=== PATIENT | female | born 1960 | race Caucasian/White ===

== ENCOUNTER 2024-06-04 07:51 | Inpatient (IN) ==
--- NOTE | 2024-05-11 10:55 | PAT Medication Instructions ---
Medication Instructions Date of Service May 11, 2024 Home Medications amlodipine 10 mg tablet 5 mg PO HS aspirin 81 mg capsule 81 mg PO QAM atorvastatin 20 mg tablet 20 mg PO HS betamethasone dipropionate 0.05 % topical cream 1 applic topical BID PRN psoriasis cholecalciferol (vitamin D3) 125 mcg (5,000 unit) tablet (Vitamin D3) 125 mcg PO QAM diclofenac sodium 1 % topical gel (Voltaren Arthritis Pain) 2 g topical QID PRN Pain duloxetine 60 mg capsule,delayed release 60 mg PO QAM gabapentin 300 mg capsule 1,200 mg PO HS hydrochlorothiazide 12.5 mg tablet 12.5 mg PO QAM hydrocodone 5 mg-acetaminophen 325 mg tablet 1 tab PO Q4H PRN Pain melatonin 5 mg tablet 15 - 20 mg PO HS PRN Sleep metformin 500 mg tablet 1,000 mg PO QAM metoprolol succinate 100 mg tablet,extended release 24 hr 100 mg PO QAM metoprolol succinate 50 mg tablet,extended release 24 hr 50 mg PO QAM omeprazole 20 mg tablet,delayed release 20 mg PO QAM ASK your prescriber and surgeon aspirin 81 mg capsule 81 mg PO QAM STOP taking 24 hours before surgery diclofenac sodium 1 % topical gel (Voltaren Arthritis Pain) 2 g topical QID PRN Pain betamethasone dipropionate 0.05 % topical cream 1 applic topical BID PRN psoriasis DO NOT take the morning of surgery cholecalciferol (vitamin D3) 125 mcg (5,000 unit) tablet (Vitamin D3) 125 mcg PO QAM hydrochlorothiazide 12.5 mg tablet 12.5 mg PO QAM metformin 500 mg tablet 1,000 mg PO QAM Take morning of surgery With a small sip of water, OTHERWISE NOTHING TO EAT OR DRINK AFTER MIDNIGHT: duloxetine 60 mg capsule,delayed release 60 mg PO QAM hydrocodone 5 mg-acetaminophen 325 mg tablet 1 tab PO Q4H PRN Pain (if needed) metoprolol succinate 100 mg tablet,extended release 24 hr 100 mg PO QAM metoprolol succinate 50 mg tablet,extended release 24 hr 50 mg PO QAM omeprazole 20 mg tablet,delayed release 20 mg PO QAM Take evening before surgery amlodipine 10 mg tablet 5 mg PO HS atorvastatin 20 mg tablet 20 mg PO HS gabapentin 300 mg capsule 1,200 mg PO HS hydrocodone 5 mg-acetaminophen 325 mg tablet 1 tab PO Q4H PRN Pain (if needed) melatonin 5 mg tablet 15 - 20 mg PO HS PRN Sleep (if needed) Other Notes If you have any questions please call us at [phone] or [phone] or [phone] or [phone]
--- NOTE | 2024-05-14 12:21 | Anesthesiology Consultation ---
Date of Service May 14, 2024 Assessment & Plan (1) Encounter for pre-operative examination: - Check BSG DOS - Infectious disease screening: Per assessment on 05/14/24- No known recent infectious disease contacts. URI/bronchitis onset 04/26/24 resolved except mild, residual cough. DOS 06/04/24. Patient advised to contact surgeon/PAT if symptoms worsening/not at baseline prior to surgery. - Patient acceptable risk for surgery pending surgeon-ordered PCP preop evaluation (Dr. Palma/Debi, appt 05/25). Chart Review Chart Review: Patient seen in Pre Admission Testing Teaching & Discussion Pre-Anesthesia Teaching/Discussion Notes: Instructed NPO after midnight before surgery,except medications with 15 cc of water. Medication instructions provided according to the PAT guidelines. History Surgery Operation Date: 06/04/24 09:35 Proposed Procedures p L4-L5,L5-S1 Decompression and Fusion with Spinal Cord Monitoring - Papo Champagne, DO Height/Weight Height: 5 ft 4 in Weight: 91.4 kg Allergies Allergy/AdvReac Type Severity Reaction Status Date / Time lisinopril Allergy lip Verified 04/29/24 13:47 swelling Medications Home Medications Medication Instructions Recorded Confirmed Last Taken amlodipine 10 mg tablet 5 mg PO HS 04/29/24 04/29/24 Unknown aspirin 81 mg capsule 81 mg PO QAM 04/29/24 04/29/24 Unknown atorvastatin 20 mg tablet 20 mg PO HS 04/29/24 04/29/24 Unknown betamethasone dipropionate 0.05 % 1 applic topical BID PRN psoriasis 04/29/24 04/29/24 Unknown topical cream cholecalciferol (vitamin D3) 125 125 mcg PO QAM 04/29/24 04/29/24 Unknown mcg (5,000 unit) tablet (Vitamin D3) diclofenac sodium 1 % topical gel 2 g topical QID PRN Pain 04/29/24 04/29/24 Unknown (Voltaren Arthritis Pain) duloxetine 60 mg capsule,delayed 60 mg PO QAM 04/29/24 04/29/24 Unknown release gabapentin 300 mg capsule 1,200 mg PO HS 04/29/24 04/29/24 Unknown hydrochlorothiazide 12.5 mg tablet 12.5 mg PO QAM 04/29/24 04/29/24 Unknown hydrocodone 5 mg-acetaminophen 325 1 tab PO Q4H PRN Pain 04/29/24 04/29/24 Unknown mg tablet melatonin 5 mg tablet 15 - 20 mg PO HS PRN Sleep 04/29/24 04/29/24 Unknown metformin 500 mg tablet 1,000 mg PO QAM 04/29/24 04/29/24 Unknown metoprolol succinate 100 mg 100 mg PO QAM 04/29/24 04/29/24 Unknown tablet,extended release 24 hr metoprolol succinate 50 mg 50 mg PO QAM 04/29/24 04/29/24 Unknown tablet,extended release 24 hr omeprazole 20 mg tablet,delayed 20 mg PO QAM 04/29/24 04/29/24 Unknown release Past Medical History Medical History Back pain Fibromyalgia GERD (gastroesophageal reflux disease) Hx of migraines Hyperlipidemia Hypertension Prediabetes Oral med Psoriasis Sleep apnea CPAP Exercise / Class Metabolic Activity II 4-5 Yardwork/Stairs/Walk up hill (one FS: No CP, no SOB) Past Surgical History Surgical History History of bilateral tubal ligation History of esophagogastroduodenoscopy (EGD) Hx laparoscopic cholecystectomy Hx of abdominal surgery removal of foreign body Hx of appendectomy Hx of bilateral cataract extraction Hx of bladder repair surgery bladder tacking Hx of cervical spine surgery C3-C6 (2005) "minimal ROM restrictions" Hx of colonoscopy ~ Hx of foot surgery bilateral plantar fascitis sx w/ removal bone spurs Hx of tonsillectomy Nausea and vomiting after administration of anesthetic agent Past Anesthesia History No Hx of Anesthesia Complications and No Family Hx of Anesthesia Complications History of PONV No Hx of Motion Sickness and History of PONV Social History Smoking Status: Never smoker Do You Dip or Chew Tobacco: No Hx Alcohol Use: Yes alcohol intake frequency: holidays/special occasions only Hx Substance Use: No substance use type: does not use Review of Systems Patient denies chest pain, shortness of breath, dyspnea on exertion, fever, chills, cough, wheezing, palpitations. Physical Exam Vital Signs BP 117/73 P 65 TEMP 98.1 SP02 95%RA RESP 18 Physical Full cervical extension range of motion. Full TMJ range of motion. TMD 3 finger breaths Mallampati Score III Dentition: missing molars, planned upcoming 06/01 crown placement (advised to inform surgeon) Lungs: clear throughout to auscultation Cardiac: regular rate and rhythm, no murmurs noted Spine: normal Carotid arteries: negative bruit Extremities: no LE edema Lab Results Anesthesia Preop Results Results Anesthesia Widget: WBC 8.18 K/ul (4.8-10.8) 05/14/24 Hgb 12.0 g/dl (12.0-16.0) 05/14/24 Hct 34.7 % (37.0-47.0) L 05/14/24 Plt 345 K/uL (130-400) 05/14/24 Na 139 mmol/L (136-145) 05/14/24 K 3.3 mmol/L (3.5-5.1) L 05/14/24 Cl 103 mmol/L (98-107) 05/14/24 CO2 26 mmol/L (21-32) 05/14/24 BUN 11 mg/dl (6-23) 05/14/24 Creat 0.94 mg/dl (0.6-1.2) 05/14/24 Glucose Level 195 mg/dl (70-99(Fasting)) H 05/14/24 PT 10.6 Seconds (9.0-12.0) 05/14/24 PTT 26 Seconds (21-31) 05/14/24 INR 1.0 (0.9-1.1) 05/14/24 HA1c 7.6 % (4.5-5.6) H 05/14/24 Urine Color Yellow 05/14/24 Urine Appearance Clear (Clear) 05/14/24 Urine pH 5.5 (4.5-7.5) 05/14/24 Urine Specific [place] 1.015 (1.000-1.030) 05/14/24 Urine Protein Negative (Negative) 05/14/24 Urine Glucose (UA) Negative (Negative) 05/14/24 Urine Ketones Negative (Negative) 05/14/24 Urine Blood Negative (Negative) 05/14/24 Urine Nitrite Positive (Negative) A 05/14/24 Urine Bilirubin Negative (Negative) 05/14/24 Urine Urobilinogen Negative (Negative) 05/14/24 Urine Leukocyte Esterase Trace (Negative) H 05/14/24 Urine WBC (Auto) 0-5 /hpf (0-5) 05/14/24 Urine RBC (Auto) 0-2 /hpf (0-2) 05/14/24 Urine Hyaline Casts (Auto) 0-2 /lpf (0-2) 05/14/24 Urine Epithelial Cells (Auto) 6-10 /hpf (0-2) H 05/14/24 Urine Bacteria (Auto) 4+ (None Seen) H 05/14/24 Blood Type A Positive 05/14/24 Antibody Screen NEGATIVE 05/14/24 Testing Laboratory Results Urine culture (05/14/24): pending Surgeon's office made aware of abnormal UA* Electrocardiogram Date: 05/14/24 NSR at 62bpm. NS STA. Chest X-Ray Date: 05/14/24 FINDINGS: Cardiomediastinal and hilar silhouettes are within normal limits. No pneumothorax, pleural effusion or airspace consolidation. Cervical spinal fusion hardware. Mild hyperinflation with diaphragmatic flattening. Cholecystectomy. Bones of the chest appear grossly intact. IMPRESSION: No acute process.
[2024-06-04] MEDS ORDERED: MIDAZOLAM HCL 1 MG/ML 2ML VIAL ONE (09:12)
[2024-06-04] MEDS ORDERED: fentaNYL citrate PF 100 MCG/2 ML VIAL ONE (09:13)
[2024-06-04] MEDS ORDERED: PROPOFOL IV EMULSION 10 MG/ML 20 ML VIAL IV ONE (09:14)
[2024-06-04] MEDS ORDERED: LIDOCAINE 2% 2 ML VIAL/AMP(20MG/ML) INFIL ONE (09:14)
[2024-06-04] MEDS ORDERED: ROCURONIUM BROMIDE 10 MG/ML 5 ML VIAL IV ONE (09:15)
[2024-06-04] MEDS: LR 15ML/HR IV SCH (09:18)
[2024-06-04] MEDS: LR 60ML/HR IV SCH (09:18)
[2024-06-04] MEDS: ACETAMINOPHEN 500 MG TAB PO SCH (09:19)
[2024-06-04] MEDS: GABAPENTIN 600 MG DOSE PO SCH (09:19)
[2024-06-04] MEDS: CeleBREX 200 MG CAP PO SCH (09:19)
[2024-06-04] MEDS ORDERED: HYDROmorphone INJ 1 MG/ML SYRINGE IV PRN (09:24)
[2024-06-04] MEDS ORDERED: LABETALOL HCL IV 5 MG/ML 20ML IV PRN (09:24)
[2024-06-04] MEDS ORDERED: fentaNYL citrate PF 100 MCG/2 ML VIAL IV PRN (09:24)
[2024-06-04] MEDS ORDERED: PROMETHAZINE HCL 6.25 MG in SODIUM CHLORIDE 0.9% 50 ML IV PRN (09:24)
[2024-06-04] MEDS ORDERED: ONDANSETRON INJ 2 MG/ML 2 ML VIAL IV PRN (09:24)
[2024-06-04] MEDS ORDERED: ePHEDrine sulfate 50 MG/ML AMP IV PRN (09:24)
[2024-06-04] MEDS ORDERED: ATROPINE SULFATE 0.1 MG/ML 10ML SYR IV PRN (09:24)
[2024-06-04] MEDS ORDERED: FLUMAZENIL 0.1 MG/1 ML 10 ML VIAL IV PRN (09:24)
[2024-06-04] MEDS ORDERED: NALOXONE HCL 0.4 MG/1 ML VIAL/CARP IV PRN ×2 (09:24→12:13)
--- NOTE | 2024-06-04 09:30 | History & Physical Bridge Note ---
Date of Service June 04, 2024 History & Physical Bridge Note I have examined the patient, reviewed the History & Physical and in the interval since the performance of the History & Physical I have noted the following changes of clinical significance: no changes noted
--- NOTE | 2024-06-04 09:31 | History & Physical Report ---
Date of Service June 04, 2024 Assessment & Plan (1) Two-level lumbosacral spondylosis with radiculopathy: Plan: L4-L5, L5-S1 decompression and fusion History of Present Illness Chief Complaint: Back and bilateral leg pain Primary Care Provider: Ivan Palma DO This is a 63-year-old female who presents with Koros system back and leg pain after failing course of nonoperative care she is here for surgical invention. Allergies Allergy/AdvReac Type Severity Reaction Status Date / Time lisinopril Allergy lip Verified 06/04/24 08:50 swelling Home Medications Medication Instructions Recorded Confirmed Type amlodipine 10 mg tablet 5 mg PO HS 04/29/24 06/04/24 History aspirin 81 mg capsule 81 mg PO QAM 04/29/24 06/04/24 History atorvastatin 20 mg tablet 20 mg PO HS 04/29/24 06/04/24 History betamethasone dipropionate 0.05 % 1 applic topical BID PRN psoriasis 04/29/24 06/04/24 History topical cream cholecalciferol (vitamin D3) 125 125 mcg PO QAM 04/29/24 06/04/24 History mcg (5,000 unit) tablet (Vitamin D3) diclofenac sodium 1 % topical gel 2 g topical QID PRN Pain 04/29/24 06/04/24 History (Voltaren Arthritis Pain) duloxetine 60 mg capsule,delayed 60 mg PO QAM 04/29/24 06/04/24 History release gabapentin 300 mg capsule 1,200 mg PO HS 04/29/24 06/04/24 History hydrochlorothiazide 12.5 mg tablet 12.5 mg PO QAM 04/29/24 06/04/24 History hydrocodone 5 mg-acetaminophen 325 1 tab PO Q4H PRN Pain 04/29/24 06/04/24 History mg tablet melatonin 5 mg tablet 15 - 20 mg PO HS PRN Sleep 04/29/24 06/04/24 History metformin 500 mg tablet 1,000 mg PO QAM 04/29/24 06/04/24 History metoprolol succinate 100 mg 100 mg PO QAM 04/29/24 06/04/24 History tablet,extended release 24 hr metoprolol succinate 50 mg 50 mg PO QAM 04/29/24 06/04/24 History tablet,extended release 24 hr omeprazole 20 mg tablet,delayed 20 mg PO QAM 04/29/24 06/04/24 History release Past Med/Surg History Problem List (Updated 06/04/24 @ 09:31 by Papo Champagne, DO) Two-level lumbosacral spondylosis with radiculopathy Encounter for pre-operative examination Medical History Back pain Fibromyalgia GERD (gastroesophageal reflux disease) Hx of migraines Hyperlipidemia Hypertension Prediabetes Oral med Psoriasis Sleep apnea CPAP Surgical History History of bilateral tubal ligation History of esophagogastroduodenoscopy (EGD) Hx laparoscopic cholecystectomy Hx of abdominal surgery removal of foreign body Hx of appendectomy Hx of bilateral cataract extraction Hx of bladder repair surgery bladder tacking Hx of cervical spine surgery C3-C6 (2005) "minimal ROM restrictions" Hx of colonoscopy ~ Hx of foot surgery bilateral plantar fascitis sx w/ removal bone spurs Hx of tonsillectomy Nausea and vomiting after administration of anesthetic agent Social History Smoking Status: Never smoker Second Hand Exposure: No; Do You Dip or Chew Tobacco: No; Tobacco Cessation Education Requested by Patient: No Hx Alcohol Use: Yes Hx Substance Use: No Preferred Language: Russian Communication Ability: Effective Civil Project Engineer Required: No Beliefs That Will Affect Care: None Current Living Situation: Spouse Other Information That Helps Us Care for You: No Feels Safe at Home: Yes Safety Concerns: Feels Safe At This Time Assistive Devices: CPAP and Glasses Physical Exam Physical Exam: Patient is alert and oriented Heart regular rhythm Lungs clear Results & Data Results & Data Vital Signs (Past 12 Hours) Vital Signs Temp Pulse Resp BP Pulse Ox O2 Del Method 06/04/24 09:08 36.6 C 57 L 20 152/88 H 98 Room Air
[2024-06-04] MEDS: ceFAZolin 2000MG 2,000 MG/15 ML SYR IV SCH ×2 (09:59→17:26)
[2024-06-04] MEDS ORDERED: KETAMINE HCL 10MG/ML SYR ONE (10:26)
[2024-06-04] MEDS ORDERED: HYDROmorphone INJ 2 MG/ML SYR/VIAL ONE (10:26)
[2024-06-04] MEDS: TRANEXAMIC ACID / 0.7% NACL 1000MG/100ML BAG IV ONE (10:37)
[2024-06-04] MEDS: BUPIVACAINE/EPINEPHRINE 0.25% 1:200,000 30 ML VIAL ONE (10:48)
[2024-06-04] MEDS ORDERED: SUGAMMADEX SODIUM 200 MG/2 ML VIAL IV ONE ×2 (12:02)
--- NOTE | 2024-06-04 12:10 | Operative Report ---
Post Operative Report Pre & Post Diagnosis Operation Date: 06/04/24 09:35 Pre-Op Diagnosis: #1 lumbar spondylolisthesis with radiculopathy. #2 lumbar spinal stenosis with neurogenic claudication. #3 lumbar spondylosis with radiculopathy. Postop diagnosis: Same I identified the patient and participated in the time-out.: Yes Procedure Operation Date: 06/04/24 09:35 Actual Procedures #1 excision of extradural mass L4-5. #2 lumbar decompression bilateral medial facetectomies and foraminotomies L3-L4, L4-5 and L5-S1. #4 posterior spinal fusion L4-S1. #5 placed posterior instrumentation L4-S1 using camber. #6 interbody fusion L4-L5 L5-S1. #7 placement of Spira 14 x 26 mm cages x 2 at L4- 5 and 13 x 26 mm cages x 2 at L5-S1. #8 placement locally harvested morselized autograft and posterior gutters. #9 placement of infuse collagen sponge, with Koros in the posterior lateral gutters and os design bone graft and interbody space. #10 application of versa wrap of the exposed dura. Surgeon Papo Champagne, DO Staffing Analyst Houston Saucedo Estimated Blood Loss 250 Findings See Below The patient is 5 foot 4 weighing over 90 kg with a BMI in excess of 34. The patient's body habitus did contribute to significant technical difficulty with positioning exposure and the procedure itself and at least 50% increased operative time. Specimens None Indications This is a 63-year-old female that presents above-mentioned diagnosis after failing course of nonoperative care is here for surgical invention. Description of Procedure Patient was met with identified informed consent obtained. Patient was then taken to the operative suite underwent intubation placed in a prone position on the Mark table atop the Johnathan frame. All bony promises well-padded eyes inspected to ensure no external pressure placed upon them. This point the lumbar spine was prepped and draped normal sterile fashion. Sharp dissection with the assistance of Bovie cautery performed down to and exposing the lamina transverse processes of L4-5 and the sacral ala bilaterally. Regardless of fashion complete laminectomy of L5 was performed including bilateral medial facetectomies and foraminotomies addressing severe spinal stenosis. This is followed by complete laminectomy of L4 including removal of facet cyst attached to the dura on the right. This included bilateral medial facetectomies and foraminotomies to address all neural compression. Lastly partial laminectomy of L3 with bilateral medial facetectomies to address all subarticular stenosis. Pedicle screws were then placed in L for L5 and the sacral ala bilaterally. The process shani was contoured and placed. By way of transforaminal approach and right discectomy of L5-S1 was performed endplates corrected to subcortical main bone and a 13 x 26 mm Spira cage filled with os design bone graft apposition. Then proceeded to left transforaminal region at L5-S1. Discectomy performed. Endplates guided to subcortical bleeding bone and a second 13 x 26 mm Spira cage filled with os designed tapped in position. Then proceeded to L4-[address] transforaminal approach on the left discectomy was performed. Endplates guided to subcortical bleeding bone and a 14 x 26 mm Spira cage filled with os designed tapped in position. Then proceeded the right transforaminal region. Again discectomy performed. Endplates guided to subcortical mean bone and a second 14 x 26 mm spiral cage filled with os design tapped in position. The rods were then compressed locked in final position bilaterally. The transverse processes of L4-5 and the sacral ala burred to subcortical bleeding bone. Infuse collagen sponge, with Koros and local autograft placed in the posterior lateral gutters. Versa wrap placed over the exposed dura. 15 round ALEC drain inserted. The incision was then closed with 1 Vicryl the fascia 2-0 Vicryl subcutaneously and 4 Monocryl for final skin closure. Steri-Strips sterile dressing placed. Patient waken taken PACU stable condition. Please note Houston Wiggins was present at the entire procedure and all the patient positioning complex portion of the surgery and final skin closure. I attest to the content of the Intraoperative Record and any orders documented therein. Any exceptions are noted below.
[2024-06-04] MEDS ORDERED: PROMETHAZINE 12.5 MG/50.5 ML BAG IV PRN (12:13)
[2024-06-04] MEDS ORDERED: MAGNESIUM HYDROXIDE SUSP 30 ML UDC PO PRN (12:13)
[2024-06-04] MEDS ORDERED: diphenhydrAMINE Capsule 25 MG CAP PO PRN (12:13)
[2024-06-04] MEDS ORDERED: ONDANSETRON 4 MG OD TAB PO PRN (12:13)
[2024-06-04] MEDS ORDERED: LORazepam 2 MG/1 ML VIAL IV PRN (12:13)
[2024-06-04] MEDS ORDERED: DO NOT ADMINISTER PNEUMOCOCCAL VACCINE PRN (12:13)
[2024-06-04] MEDS ORDERED: FAMOTIDINE 20 MG TAB PO PRN (12:13)
[2024-06-04] MEDS ORDERED: ALUMINUM/MAGNESIUM SUSP 30 ML UDC PO PRN (12:13)
[2024-06-04] MEDS ORDERED: METOCLOPRAMIDE HCL INJ 5 MG/ML 2 ML VIAL IV PRN (12:13)
[2024-06-04] MEDS ORDERED: oxyCODONE HCL IR 5 MG TAB (IMMEDIATE RELEASE) PO PRN (12:13)
[2024-06-04] MEDS ORDERED: HYDROmorphone INJ 0.5 MG/0.5 ML SYR IV PRN (12:13)
[2024-06-04] MEDS ORDERED: PHARMACY GLYCEMIC MGMT CONSULT PRN (12:13)
[2024-06-04] MEDS ORDERED: hydrOXYzine HCl 25 MG TAB PO PRN (12:13)
[2024-06-04] MEDS ORDERED: SOD PHOSPHATE/SOD BIPHOSPHATE ENEMA 132 ML BTL PR PRN (12:13)
[2024-06-04] MEDS ORDERED: DO NOT ADMINISTER FLU VACCINE PRN (12:13)
[2024-06-04] MEDS ORDERED: bisacodyL 10 MG SUPP PR PRN (12:13)
[2024-06-04] MEDS ORDERED: LORazepam 0.5 MG TAB PO PRN (12:13)
[2024-06-04] MEDS ORDERED: ACETAMINOPHEN 1,000 MG/100 ML VIAL IV PRN (12:13)
[2024-06-04] MEDS: FLOSEAL HEMOSTATIC MATRIX 10ML TOP ONE (12:14)
[2024-06-04] MEDS: ceFAZolin 330 MG/ML 1 GM VIAL ONE (12:14)
--- NOTE | 2024-06-04 12:36 | Fluoroscopy Report ---
FL lumbar spine 2-3V CLINICAL HISTORY: L4-S1 DECOMPRESSION AND FUSION WITH INTERBODIES COMPARISON STUDY: None FLUOROSCOPY TIME: 25.1 seconds FLUOROSCOPY IMAGES: 2 EXPOSURE DOSE: 25.24 mGy FINDINGS: Posterior interbody rods and screw fusion hardware with discectomy noted at L4-L5 and L5-S1 . Grade 2 anterolisthesis anterolisthesis L4 on L5. Hardware appears intact. No unexpected opaque for eign bodies. Note that the images were submitted following completion of the surgery. IMPRESSION: Fluoroscopic assistance as above. ACT 112: Negative or not required by law. Electronically signed by: Everett Birch M.D. 06/04/2024 12:29 PM
[2024-06-04] MEDS ORDERED: GLUCOSE 10 TAB/TUBE PO PRN (13:00)
[2024-06-04] MEDS ORDERED: CARBOHYDRATES FOR HYPOGLYCEMIA PO PRN (13:00)
[2024-06-04] MEDS ORDERED: GLUCOSE 40% GEL 15 GM TUBE PO PRN (13:00)
[2024-06-04] MEDS ORDERED: DEXTROSE 50% 50 ML SYRINGE IV PRN (13:00)
[2024-06-04] MEDS ORDERED: GLUCAGON FOR INJ 1 MG VIAL SQ PRN (13:00)
--- NOTE | 2024-06-04 14:09 | Anesthesiology Progress Note ---
Date of Service June 04, 2024 Anesthesia Post Procedure Vital Signs Vital Signs: Temp Pulse Pulse Resp BP Pulse Ox O2 Del Method 06/04/24 13:55 59 L 13 134/69 96 Nasal Cannula 06/04/24 13:45 36.4 C L 65 12 138/75 94 Nasal Cannula 06/04/24 13:35 56 L 12 123/66 93 Oxymask 06/04/24 13:25 57 L 12 129/70 93 Oxymask 06/04/24 13:15 56 L 13 131/74 94 Oxymask 06/04/24 13:05 55 L 12 139/71 95 Oxymask 06/04/24 12:55 55 L 12 142/72 H 95 Oxymask 06/04/24 12:45 53 L 12 161/79 H 95 Oxymask 06/04/24 12:35 57 L 14 161/76 H 95 Oxymask 06/04/24 12:28 36 C L 53 L 17 187/71 H 93 Oxymask 06/04/24 09:08 36.6 C 57 L 20 152/88 H 98 Room Air O2 Flow Rate 06/04/24 13:55 4 06/04/24 13:45 4 06/04/24 13:35 8 06/04/24 13:25 8 06/04/24 13:15 8 06/04/24 13:05 8 06/04/24 12:55 10 06/04/24 12:45 15 06/04/24 12:35 15 06/04/24 12:28 8 06/04/24 09:08 Pain Intensity Bilateral Back: Pain Intensity: 3 Transfer of Care Handoff Completed per policy Notes Mental Status: alert / awake / arousable Patient Amnestic to Procedure: Yes Nausea / Vomiting: adequately controlled Pain: adequately controlled Airway Patency, RR, SpO2: stable & adequate BP & HR: stable & adequate Hydration State: stable & adequate Anesthetic Complications: no major complications apparent
--- NOTE | 2024-06-04 14:38 | Pharmacy Report ---
Pharmacy Glycemic Short Note 2 - Date of Service June 04, 2024 - Glycemic Short BSG Results (Last 24 hours): 06/04/24 09:00 POC Glucose 150 H OUTPATIENT ANTIDIABETIC REGIMEN: * metformin 1 gm daily ASSESSMENT: * 63 year old s/p surgery, POD 0 - pharmacy consulted for glycemic management. Only metformin listed on outpatient med list. No steroids given in OR, plan to start novolog weight based stress of 2 dosing. * IV dexamethasone scheduled to start tomorrow AM, will reevaluate and consider low dose Lantus to help with coverage of steroid effects PLAN FOR INPATIENT GLYCEMIC CONTROL: * Hold outpatient oral diabetes medications * Basal insulin * Lantus - hold * Bolus insulin * NovoLog per scale ACHS or Q6hrs while NPO * Goal Range: Low 110 mg/dL - High 140 mg/dL * Correction Factor: 30 mg/dL/unit * Nutritional / Prandial insulin per carb ratio of 1 unit per 10 grams CHO consumed
[2024-06-04] MEDS: INSULIN ASPART PER UNIT CHARGE SC SCH (15:12)
[2024-06-04] MEDS: HYDROmorphone INJ 1 MG/ML SYRINGE IV PRN (15:38)
--- NOTE | 2024-06-04 16:24 | Consultation ---
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 Champagne. 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 Champagne. Per ortho for pain control, wound care, anticoagulation and activities Monitor H&H (EBL 250ml, hgb 12), continue incentive spirometry, PT/OT when appropriate (2) Hypertension: Continue amlodipine, Toprol with hold parameters. Hold HCTZ for nowin post-op setting (3) Fibromyalgia: Continue SNRI, reduced gabapentin dose HS in setting of anesthesia, PRN narcotics (4) Hyperlipidemia: Continue statin (5) GERD (gastroesophageal reflux disease): Continue PPI (6) Prediabetes: A1c 7.6 in Apr 2024 Hold home metformin Glycemic consult placed for insulin management given high dose steroids BSG AC HS (7) Psoriasis: Continue betamethasone topical BID PRN (8) Sleep apnea: CPAP HS DVT Ppx: SCDs PCP: Jonathan Fritz Dispo: admitted to med/surg, per primary for discharge Patient seen in collaboration with Dr. Medellin. Please see addendum. I spent a total of 60 minutes coordinating, documenting, and providing care for this patient excluding time spent in the performance of separately billed services or time spent by another provider/QHP. Supervising Physician Co-Signing Physician Notes Pt seen and examined by me, care coordinated w/ Steven Mckinney PA-C, pls refer to her note for further detail. Pt seen post-op, sitting up in bed in NAD, little drowsy post-anesthesia but able to answer appropriately. Pt's also present at the bedside and helps provide history. Pt has some nausea. Otherwise denies any chest pain, shortness of breath, or abd. pain. Says she already received some pain meds for post-op pain. Lungs are CTAB, heart sounds regular. Abdomen soft nontender. + Vela. She is moving extremities. Will hold HCTZ, will reduce gabapentin dose for now.Check cbc, bmp AM, monitor for acute blood loss anemia. Cont. to closely monitor. 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 Champagne. Feeling sleepy post-operatively but pain is controlled now. Intermittent post-op nausea. Her chronic back pain radiated into R leg which is not occurring post-operatively. No F/C, lightheadedness, CP, SOB, vomiting, abdominal pain, dysuria, diarrhea or constipation. Primary care is with [facility]. Allergies Allergy/AdvReac Type Severity Reaction Status Date / Time lisinopril Allergy lip Verified 06/04/24 08:50 swelling Home Medications Medication Instructions Recorded Confirmed Type amlodipine 10 mg tablet 5 mg PO HS 04/29/24 06/04/24 History aspirin 81 mg capsule 81 mg PO QAM 04/29/24 06/04/24 History atorvastatin 20 mg tablet 20 mg PO HS 04/29/24 06/04/24 History betamethasone dipropionate 0.05 % 1 applic topical BID PRN psoriasis 04/29/24 06/04/24 History topical cream cholecalciferol (vitamin D3) 125 125 mcg PO QAM 04/29/24 06/04/24 History mcg (5,000 unit) tablet (Vitamin D3) diclofenac sodium 1 % topical gel 2 g topical QID PRN Pain 04/29/24 06/04/24 History (Voltaren Arthritis Pain) duloxetine 60 mg capsule,delayed 60 mg PO QAM 04/29/24 06/04/24 History release gabapentin 300 mg capsule 1,200 mg PO HS 04/29/24 06/04/24 History hydrochlorothiazide 12.5 mg tablet 12.5 mg PO QAM 04/29/24 06/04/24 History hydrocodone 5 mg-acetaminophen 325 1 tab PO Q4H PRN Pain 04/29/24 06/04/24 History mg tablet melatonin 5 mg tablet 15 - 20 mg PO HS PRN Sleep 04/29/24 06/04/24 History metformin 500 mg tablet 1,000 mg PO QAM 04/29/24 06/04/24 History metoprolol succinate 100 mg 100 mg PO QAM 04/29/24 06/04/24 History tablet,extended release 24 hr metoprolol succinate 50 mg 50 mg PO QAM 04/29/24 06/04/24 History tablet,extended release 24 hr omeprazole 20 mg tablet,delayed 20 mg PO QAM 04/29/24 06/04/24 History release oxycodone 5 mg tablet 5 mg PO Q6H PRN pain #30 tabs 06/05/24 Rx Patient History Medical History Psoriasis Hx of migraines Sleep apnea CPAP Prediabetes Oral med Back pain Fibromyalgia Hyperlipidemia Hypertension GERD (gastroesophageal reflux disease) Surgical History Nausea and vomiting after administration of anesthetic agent Hx of abdominal surgery removal of foreign body History of bilateral tubal ligation Hx of foot surgery bilateral plantar fascitis sx w/ removal bone spurs Hx of cervical spine surgery C3-C6 (2005) "minimal ROM restrictions" Hx of bladder repair surgery bladder tacking Hx laparoscopic cholecystectomy Hx of appendectomy History of esophagogastroduodenoscopy (EGD) Hx of colonoscopy ~ Hx of bilateral cataract extraction Hx of tonsillectomy Family History Other Diabetes Social History Smoking Status: Never smoker Second Hand Exposure: No; Do You Dip or Chew Tobacco: No; Tobacco Cessation Education Requested by Patient: No Hx Alcohol Use: Yes Hx Substance Use: No Preferred Language: [place]ib[place]ian Communication Ability: Effective Early Childhood Education Specialist Required: No Beliefs That Will Affect Care: None Current Living Situation: Spouse Other Information That Helps Us Care for You: No Feels Safe at Home: Yes Safety Concerns: Feels Safe At This Time Assistive Devices: CPAP and Glasses Review of Systems Review of Systems: At least ten systems reviewed and negative except as noted in the HPI. Physical Exam Physical Exam: General Appearance: WD/WN, vitals as above, NAD, sitting up in bed, pleasant, obese Head: normocephalic, atraumatic Eyes: normal inspection ENT: external ear and nose normal, oropharynx normal Respiratory: normal respiratory effort, lungs clear to auscultation. No accessory muscle use Cardiovascular: regular rate, rhythm,normal peripheral pulses, no BLE edema Abdomen/GI: normal bowel sounds, soft, nontender, no hepatosplenomegaly Extremities/Musculoskeletal: +ALEC drain visualized, no cyanosis or clubbing, extremities motor strength intact, +SCDs Neurologic: PERRL, EOMI, CN's II-XI intact bilaterally and moves all extremities Psychiatric: A+Ox3, euthymic affect Skin: no rashes, normal color, warm/dry Results & Data Vital Signs (Past 12 Hours) Vital Signs Temp Pulse Pulse Pulse Resp BP Pulse Ox 06/04/24 15:20 36.6 C 61 14 114/62 95 06/04/24 14:50 36.3 C L 60 18 112/66 93 06/04/24 14:20 36.3 C L 62 16 129/68 95 06/04/24 13:55 59 L 13 134/69 96 06/04/24 13:45 36.4 C L 65 12 138/75 94 06/04/24 13:35 56 L 12 123/66 93 06/04/24 13:25 57 L 12 129/70 93 06/04/24 13:15 56 L 13 131/74 94 06/04/24 13:05 55 L 12 139/71 95 06/04/24 12:55 55 L 12 142/72 H 95 06/04/24 12:45 53 L 12 161/79 H 95 06/04/24 12:35 57 L 14 161/76 H 95 06/04/24 12:28 36 C L 53 L 17 187/71 H 93 06/04/24 09:08 36.6 C 57 L 20 152/88 H 98 O2 Del Method O2 Flow Rate 06/04/24 15:20 Nasal Cannula 4 06/04/24 14:50 Nasal Cannula 4 06/04/24 14:20 Nasal Cannula 4 06/04/24 13:55 Nasal Cannula 4 06/04/24 13:45 Nasal Cannula 4 06/04/24 13:35 Oxymask 8 06/04/24 13:25 Oxymask 8 06/04/24 13:15 Oxymask 8 06/04/24 13:05 Oxymask 8 06/04/24 12:55 Oxymask 10 06/04/24 12:45 Oxymask 15 06/04/24 12:35 Oxymask 15 06/04/24 12:28 Oxymask 8 06/04/24 09:08 Room Air
[2024-06-04] MEDS: traMADol HCL 50 MG TABLET PO PRN (16:46)
[2024-06-04] MEDS ORDERED: MELATONIN 3 MG TAB PO PRN (18:26)
[2024-06-04] MEDS: ONDANSETRON INJ 2 MG/ML 2 ML VIAL IV PRN (19:49)
[2024-06-04] MEDS: amLODIPine BESYLATE 5 MG TAB PO SCH (20:58)
[2024-06-04] MEDS: ATORVASTATIN 20 MG TAB PO SCH (20:58)
[2024-06-04] MEDS: DOCUSATE SODIUM/SENNA 50/8.6MG TAB PO SCH (20:58)
[2024-06-04] MEDS: GABAPENTIN 300 MG CAP PO SCH (20:59)
[2024-06-04] MEDS ORDERED: GABAPENTIN 400 MG CAP PO SCH (21:00)
[2024-06-05] MEDS: POLYETHYLENE (MIRALAX) 17 GM PACK PO SCH (06:16)
--- NOTE | 2024-06-05 07:20 | Hospitalist Progress Note ---
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 Champagne. 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 Champagne. Per ortho for pain control, wound care, anticoagulation and activities Continue incentive spirometry, PT/OT when appropriate Post-op blood loss anemia Hgb 10.8 from 12.0 pre-op, EBL 250ml Asymptomatic, no indication for transfusion at this time Continue to monitor with daily CBC Hypertension Continue amlodipine, Toprol with hold parameters. Hold HCTZ for now in post-op setting Fibromyalgia Continue SNRI, reduced gabapentin dose HS in setting of PRN narcotics Hyperlipidemia Continue statin GERD (gastroesophageal reflux disease) Continue PPI Prediabetes A1c 7.6 in Apr 2024 Hold home metformin Glycemic consulted by primary for insulin management given high dose steroids BSG AC HS Psoriasis Continue betamethasone topical BID PRN Sleep apnea CPAP HS DVT Ppx: SCDs PCP: Jonathan Fritz Dispo: admitted to med/surg, per primary for discharge I spent a total of 40 minutes coordinating, documenting, and providing care for this patient excluding time spent in the performance of separately billed services or time spent by another provider/QHP. Admission and Anticipated Discharge Date Admission Date: June 04, 2024 Supervising Physician Co-Signing Physician Notes Pt seen and examined by me, care coordinated w/ Steven Mckinney PA-C, pls refer to her note for further detail. Pt seen in the morning (s/p surgery yesterday) sitting up in bed in [facility]. Pt's also present at the bedside. Pt feels well this AM. Denies any chest pain, shortness of breath, or abd. pain. Lungs are CTAB, heart sounds regular. Abdomen soft nontender. + Vela. She is moving extremities. Later also seen ambulating in hallway w/ PT. Cont. to hold HCTZ, and reduced gabapentin dose for now. Hgb down to 10.8. Check cbc, bmp AM. MD Lacie Subjective Patient seen and examined in 376 bed 1. Pain is controlled today. Was up a lot overnight but expresses difficulty sleeping at baseline. No lightheadedness, chest pain, shortness of breath, nausea, vomiting, abdominal pain. Tolerated breakfast without issue. Still has Vela in place but nursing will remove when she gets up for therapy. Passing flatus, no postop bowel movement. Review of Systems Review of Systems: At least ten systems reviewed and negative except as noted in the HPI. Physical Exam Physical Exam: Gen: WD/WN, NAD, resting in bed, A&Ox3, obese HEENT: Normocephalic, atraumatic, conjunctivae moist, sclerae anicteric, mucous membranes moist Lung: Clear to Auscultation bilaterally Heart: Regular rate, regular rhythm Abdomen: Soft, NT, ND +BS x 4 Extremities: + Spinal dressing, ALEC drain visualized, no edema : Vela Skin: Warm, no rash Results & Data Results & Data Vital Signs (Past 12 Hours) Vital Signs Temp Pulse Resp BP Pulse Ox O2 Del Method O2 Flow Rate 06/05/24 07:01 36.6 C 60 16 111/69 93 Room Air 06/05/24 04:01 36.8 C 65 18 122/75 92 Nasal Cannula 2 06/04/24 23:46 36.3 C L 62 18 120/69 95 Nasal Cannula 2 06/04/24 21:24 36.3 C L 59 L 16 117/70 96 Nasal Cannula 2 06/04/24 19:25 Nasal Cannula 2 Laboratory Results 06/05/24 06/05/24 06/04/24 Range/Units 07:36 06:58 20:28 WBC 16.92 H (4.8-10.8) K/ul RBC 3.46 L (4.20-5.40) M/uL Hgb 10.8 L (12.0-16.0) g/dl Hct 31.8 L (37.0-47.0) % MCV 91.9 (80.0-100.0) fL MCH 31.2 (25.0-34.0) pg MCHC 34.0 (32.0-36.0) g/dL RDW Std Deviation 41.0 (36.4-46.3) fL RDW Coeff of Scarlet 12.3 (11.5-14.5) % Plt Count 320 (130-400) K/uL MPV 11.8 (9.4-12.4) fL Immature Gran % (Auto) 0.6 % Neut % (Auto) 84.8 % Lymph % (Auto) 6.6 % [place] % (Auto) 7.9 % Eos % (Auto) 0.0 % Baso % (Auto) 0.1 % Neut # (Auto) 14.37 H (1.40-6.50) K/uL Lymph # (Auto) 1.11 L (1.20-3.40) K/uL [place] # (Auto) 1.33 H (0.11-0.59) K/uL Eos # (Auto) 0.00 (0.00-0.50) K/uL Baso # (Auto) 0.01 (0.00-0.20) K/uL Immature Gran # (Auto) 0.10 (0.01-0.20) K/uL Sodium 140 (136-145) mmol/L Potassium 3.8 (3.5-5.1) mmol/L Chloride 100 (98-107) mmol/L Carbon Dioxide 30 (21-32) mmol/L Anion Gap 10 (3-11) BUN 16 (6-23) mg/dl Creatinine 1.05 (0.6-1.2) mg/dl Est Cr Clr Drug Dosing 59.8 ml/min eGFR 59.70 BUN/Creatinine Ratio 15.2 (10-20) Glucose 166 H (70-99(Fasting)) mg/dl POC Glucose 181 H 184 H (70-99) mg/dl Calcium 9.6 (8.6-10.3) mg/dl Phosphorus 3.6 (2.5-4.9) mg/dl Magnesium 1.9 (1.7-2.4) mg/dl 06/04/24 Range/Units 16:37 WBC (4.8-10.8) K/ul RBC (4.20-5.40) M/uL Hgb (12.0-16.0) g/dl Hct (37.0-47.0) % MCV (80.0-100.0) fL MCH (25.0-34.0) pg MCHC (32.0-36.0) g/dL RDW Std Deviation (36.4-46.3) fL RDW Coeff of Scarlet (11.5-14.5) % Plt Count (130-400) K/uL MPV (9.4-12.4) fL Immature Gran % (Auto) % Neut % (Auto) % Lymph % (Auto) % [place] % (Auto) % Eos % (Auto) % Baso % (Auto) % Neut # (Auto) (1.40-6.50) K/uL Lymph # (Auto) (1.20-3.40) K/uL [place] # (Auto) (0.11-0.59) K/uL Eos # (Auto) (0.00-0.50) K/uL Baso # (Auto) (0.00-0.20) K/uL Immature Gran # (Auto) (0.01-0.20) K/uL Sodium (136-145) mmol/L Potassium (3.5-5.1) mmol/L Chloride (98-107) mmol/L Carbon Dioxide (21-32) mmol/L Anion Gap (3-11) BUN (6-23) mg/dl Creatinine (0.6-1.2) mg/dl Est Cr Clr Drug Dosing ml/min eGFR BUN/Creatinine Ratio (10-20) Glucose (70-99(Fasting)) mg/dl POC Glucose 169 H (70-99) mg/dl Calcium (8.6-10.3) mg/dl Phosphorus (2.5-4.9) mg/dl Magnesium (1.7-2.4) mg/dl Medications Administered Current Inpatient Medications Acetaminophen (Acetaminophen 500 Mg Tab) 1,000 mg PO Q8H PRN PRN Reason: MILD Pain Scale 1,2,3 & Pre PT Stop: 07/04/24 12:12 Al Hydrox/Mg Hydrox/Simethicone (Aluminum/Magnesium Susp 30 Ml Udc) 30 ml PO Q6H PRN PRN Reason: Dyspepsia Stop: 07/04/24 12:12 Amlodipine Besylate (Amlodipine Besylate 5 Mg Tab) 5 mg PO [facility] Stop: 07/04/24 20:59 Last Admin: 06/04/24 20:58 Dose: 5 mg Aspirin (Aspirin 81 Mg Ectab) [facility] Stop: 07/05/24 08:59 Last Admin: 06/05/24 08:10 Dose: 81 mg Atorvastatin Calcium (Atorvastatin 20 Mg Tab) 20 mg PO HS [facility] Stop: 07/04/24 20:59 Last Admin: 06/04/24 20:58 Dose: 20 mg Betamethasone Dipropion Augmented (Betamethasone Dip Aug (Diprolene) 0.05% Cr 15 Gm Tube) 1 appln EXT BID PRN PRN Reason: psoriasis Stop: 07/04/24 14:51 Last Admin: 06/05/24 08:10 Dose: 1 appln Bisacodyl (Bisacodyl 10 Mg Supp) 10 mg NM DAILY PRN PRN Reason: Constipation Stop: 07/04/24 12:12 Dextrose (Dextrose 50% 50 Ml Syringe) 25 - 50 ml IV UD PRN; Protocol PRN Reason: Hypoglycemia Protocol Stop: 07/04/24 12:59 Diphenhydramine HCl (Diphenhydramine Capsule 25 Mg Cap) 25 mg PO Q6H PRN PRN Reason: Allergic Rhinitis/Insomnia Stop: 07/04/24 12:12 Duloxetine HCl (Duloxetine Hcl 60 Mg Cap) 60 [facility] Stop: 07/05/24 08:59 Last Admin: 06/05/24 08:10 Dose: 60 mg Famotidine (Famotidine 20 Mg Tab) 20 mg PO Q12H PRN PRN Reason: Dyspepsia Stop: 07/04/24 12:12 Gabapentin (Gabapentin 300 Mg Cap) 600 mg PO [facility] Stop: 07/04/24 20:59 Last Admin: 06/04/24 20:59 Dose: 600 mg Glucagon (Glucagon For Inj 1 Mg Vial) 1 mg SQ UD PRN; Protocol PRN Reason: Hypoglycemia Protocol Stop: 07/04/24 12:59 Glucose (Glucose 40% Gel 15 Gm Tube) 15 - 30 gm PO UD PRN; Protocol PRN Reason: Hypoglycemia Protocol Stop: 07/04/24 12:59 Glucose (Glucose 10 Tab/Tube) 4 - 8 tab PO UD PRN; Protocol PRN Reason: Hypoglycemia Protocol Stop: 07/04/24 12:59 Hydrochlorothiazide (Hydrochlorothiazide 25 Mg Tab) 12.5 mg PO QAM [facility] Stop: 07/05/24 08:59 Hydromorphone HCl (Hydromorphone Inj 0.5 Mg/0.5 Ml Syr) 0.5 mg IV Q3H PRN PRN Reason: MODERATE Pain (Scale 4,5,6) & Pre PT Stop: 06/18/24 12:12 Hydromorphone HCl (Hydromorphone Inj 1 Mg/Ml Syringe) 1 mg IV Q3H PRN PRN Reason: SEVERE Pain (Scale 7,8,9,10) Stop: 06/18/24 12:12 Last Admin: 06/04/24 19:49 Dose: 1 mg Hydroxyzine HCl (Hydroxyzine Hcl 25 Mg Tab) 25 mg PO Q8H PRN PRN Reason: Anxiety Stop: 07/04/24 12:12 Acetaminophen (Ofirmev) 1,000 mg in 100 mls @ 400 mls/hr IV Q8H PRN PRN Reason: Pain Rating 1-3 & Pre PT Stop: 06/05/24 12:13 Promethazine HCl (Phenergan) 12.5 mg in 50.5 mls @ 202 mls/hr IV Q6H PRN PRN Reason: Nausea And Vomiting Stop: 07/04/24 12:12 Dexamethasone 6 mg/ Syringe 1.5 mls @ 1 mls/min IV DAILY [facility] Stop: 06/07/24 09:02 Last Admin: 06/05/24 09:10 Dose: 1 mls/min Influenza Virus Vaccine Quadrival (Do Not Administer Flu Vaccine) 1 each N/A PRN PRN PRN Reason: Notification Stop: 07/04/24 12:12 Insulin Aspart (Insulin Aspart Per Unit Charge) 0 units SC ACHS [facility] Stop: 07/04/24 12:59 Last Admin: 06/05/24 09:09 Dose: 6 units Insulin Glargine (Lantus Per Unit Charge) 15 units SC DAILY [facility] Stop: 06/07/24 09:01 Last Admin: 06/05/24 09:09 Dose: 15 units Lorazepam (Lorazepam 0.5 Mg Tab) 0.5 mg PO Q8H PRN PRN Reason: Sedation/Anxiety Stop: 07/04/24 12:12 Lorazepam (Lorazepam 2 Mg/1 Ml Vial) 0.5 mg IV Q8H PRN PRN Reason: Sedation/Anxiety Stop: 07/04/24 12:12 Magnesium Hydroxide (Magnesium Hydroxide Susp 30 Ml Udc) 30 ml PO Q24H PRN PRN Reason: Constipation Stop: 07/04/24 12:12 Melatonin (Melatonin 3 Mg Tab) 3 mg PO HSZ PRN PRN Reason: Sleep Stop: 07/04/24 18:25 Metoclopramide HCl (Metoclopramide Hcl Inj 5 Mg/Ml 2 Ml Vial) 10 mg IV Q6H PRN PRN Reason: Nausea &/or Vomiting Stop: 07/04/24 12:12 Metoprolol Succinate (Metoprolol Succ 50mg Ext Rel Tab) 50 mg PO [facility] Stop: 07/05/24 08:59 Last Admin: 06/05/24 08:10 Dose: 50 mg Metoprolol Succinate (Metoprolol Succ 50mg Ext Rel Tab) 100 mg PO [facility] Stop: 07/05/24 08:59 Last Admin: 06/05/24 08:10 Dose: 100 mg Miscellaneous (Carbohydrates For Hypoglycemia ) 15 - 30 gm PO UD PRN PRN Reason: Hypoglycemia Treatment Stop: 07/04/24 12:59 Miscellaneous Information (Pharmacy Glycemic Mgmt Consult) 1 each N/A UD PRN PRN Reason: Consult Stop: 07/04/24 12:12 Naloxone HCl (Naloxone Hcl 0.4 Mg/1 Ml Vial/Carp) 0.1 mg IV Q5M PRN PRN Reason: Oversedation/Resp depression Stop: 07/04/24 12:12 Ondansetron HCl (Ondansetron Inj 2 Mg/Ml 2 Ml Vial) 4 mg IV Q6H PRN PRN Reason: Nausea &/or Vomiting Stop: 07/04/24 12:12 Last Admin: 06/04/24 19:49 Dose: 4 mg Ondansetron HCl (Ondansetron 4 Mg Od Tab) 4 mg PO Q6H PRN PRN Reason: Nausea Stop: 07/04/24 12:12 Oxycodone HCl (Oxycodone Hcl Ir 5 Mg Tab (Immediate Release)) 5 - 10 mg PO Q4H PRN PRN Reason: Pain & Pre PT Stop: 06/18/24 12:12 Pantoprazole Sodium (Pantoprazole 40 Mg Tab) 40 mg PO QAM [facility] Stop: 07/05/24 08:59 Last Admin: 06/05/24 08:10 Dose: 40 mg Pneumococcal Polyvalent Vaccine (Do Not Administer Pneumococcal Vaccine) 1 each N/A PRN PRN PRN Reason: Notification Stop: 07/04/24 12:12 Polyethylene Glycol (Polyethylene (Miralax) 17 Gm Pack) 17 gm PO Q6 [facility] Stop: 07/05/24 05:59 Last Admin: 06/05/24 06:16 Dose: 17 gm Senna/Docusate Sodium (Docusate Sodium/Senna 50/8.6mg Tab) 2 tab PO HS [facility] Stop: 07/04/24 20:59 Last Admin: 06/04/24 20:58 Dose: 2 tab Sodium Biphosphate/Sodium Phosphate (Sod Phosphate/Sod Biphosphate Enema 132 Ml Btl) 132 ml NM ONE PRN PRN Reason: Constipation Stop: 07/04/24 12:12 Tramadol HCl (Tramadol Hcl 50 Mg Tablet) 50 - 100 mg PO Q4H PRN PRN Reason: Moderate-Severe pain & Pre PT Stop: 07/04/24 12:12 Last Admin: 06/05/24 02:42 Dose: 100 mg Vitamin D (Cholecalciferol 125 Mcg (5,000 Units) Tab) 125 mcg PO QAM [facility] Stop: 07/05/24 08:59 Last Admin: 06/05/24 08:10 Dose: 125 mcg
[2024-06-05 07:25] LABS: Basophils # (auto) 0.01 K/uL (0.00-0.20); Basophils % (auto) 0.1 %; Hematocrit (blood only) 31.8 % (37.0-47.0); Hemoglobin 10.8 g/dl (12.0-16.0); Immature Granulocytes % (auto) 0.6 %; Lymphocytes # (auto) 1.11 K/uL (1.20-3.40); Lymphocytes % (auto) 6.6 %; Mean Corpuscular Hemoglobin 31.2 pg (25.0-34.0); Mean Corpuscular Volume 91.9 fL (80.0-100.0); Mean Platelet Volume 11.8 fL (9.4-12.4); Monocytes # (auto) 1.33 K/uL (0.11-0.59); Monocytes % (auto) 7.9 %; Neutrophils # (auto) 14.37 K/uL (1.40-6.50); Neutrophils % (auto) 84.8 %; Platelet Count 320 K/uL (130-400); RDW Coefficient of Variation 12.3 % (11.5-14.5); Red Blood Count 3.46 M/uL (4.20-5.40); White Blood Count 16.92 K/ul (4.8-10.8)
[2024-06-05 07:47] LABS: BUN Creatinine Ratio 15.2 (10-20); Calcium 9.6 mg/dl (8.6-10.3); Creatinine Clr Calc Pharmacy 59.8 ml/min; Magnesium 1.9 mg/dl (1.7-2.4); Phosphorus 3.6 mg/dl (2.5-4.9); Potassium 3.8 mmol/L (3.5-5.1)
[2024-06-05] MEDS: ASPIRIN 81 MG ECTAB PO SCH (08:10)
[2024-06-05] MEDS: CHOLECALCIFEROL 125 MCG (5,000 UNITS) TAB PO SCH (08:10)
[2024-06-05] MEDS: DULoxetine HCL 60 MG CAP PO SCH (08:10)
[2024-06-05] MEDS: PANTOprazole 40 MG TAB PO SCH (08:10)
[2024-06-05] MEDS: BETAMETHASONE DIP AUG (DIPROLENE) 0.05% CR 15 GM TUBE EXT PRN (08:10)
[2024-06-05] MEDS: METOPROLOL SUCC 50MG EXT REL TAB PO SCH ×2 (08:10)
[2024-06-05] MEDS ORDERED: hydroCHLOROthiazide 25 MG TAB PO SCH (09:00)
[2024-06-05] MEDS: LANTUS PER UNIT CHARGE SC SCH (09:09)
[2024-06-05] MEDS: dexAMETHasone 6 MG in SYRINGE 0 ML IV SCH (09:10)
--- NOTE | 2024-06-05 09:35 | Orthopedic Progress Note ---
Date of Service June 05, 2024 Assessment & Plan (1) Two-level lumbosacral spondylosis with radiculopathy: Plan: This time continue physical therapy monitor ALEC operatively discharge home the next few days. Admission and Anticipated Discharge Date Admission Date: June 04, 2024 Subjective Patient's back pain is controlled. She has been up ambulating with a walker. Physical Exam Physical Exam: On exam she has good strength testing peers comfortable. Results & Data Vital Signs (Past 12 Hours) Vital Signs Temp Pulse Resp BP Pulse Ox O2 Del Method O2 Flow Rate 06/05/24 07:01 36.6 C 60 16 111/69 93 Room Air 06/05/24 04:01 36.8 C 65 18 122/75 92 Nasal Cannula 2 06/04/24 23:46 36.3 C L 62 18 120/69 95 Nasal Cannula 2 Queries Orthopedic Spine Obesity: Yes
[2024-06-05] MEDS ORDERED: MELATONIN 3 MG TAB PO PRN (11:46)
--- NOTE | 2024-06-06 07:48 | Orthopedic Progress Note ---
Date of Service June 06, 2024 Assessment & Plan (1) Two-level lumbosacral spondylosis with radiculopathy: Plan: Patient is doing well postoperative #2. She is noemi continue with GI DVT prophylaxis and pain control measures. Organ to have her progress with physical therapy and hopefully get her home tomorrow. Admission and Anticipated Discharge Date Admission Date: June 04, 2024 Subjective Patient was seen bedside in room 376. She is doing well today. Her pain is well-controlled. She has been up and walking. She is not having any nausea. She is passing gas. She denies any other numbness, tingling, or paresthesias. Physical Exam Physical Exam: On exam the patient is alert and oriented. She is standing and walking when I entered the room. Her dressing is clean dry and intact. Her ALEC drain is in place and had 50 cc of drainage on the last shift and 30 prior to that. Her abdomen soft nontender calves are supple and nontender. Strength and sensation are both intact. Results & Data Vital Signs (Past 12 Hours) Vital Signs Temp Pulse Resp BP Pulse Ox O2 Del Method 06/06/24 07:12 36.7 C 61 16 115/70 93 Room Air 06/05/24 20:08 36.5 C 78 16 148/77 H 96 Room Air
[2024-06-06 07:51] LABS: Hematocrit (blood only) 31.2 % (37.0-47.0); Hemoglobin 10.5 g/dl (12.0-16.0); Mean Corpuscular Hemoglobin 30.8 pg (25.0-34.0); Mean Corpuscular Hgb Conc 33.7 g/dL (32.0-36.0); Mean Corpuscular Volume 91.5 fL (80.0-100.0); Mean Platelet Volume 12.5 fL (9.4-12.4); Platelet Count 347 K/uL (130-400); RDW Coefficient of Variation 12.4 % (11.5-14.5); RDW Standard Deviation 41.3 fL (36.4-46.3); Red Blood Count 3.41 M/uL (4.20-5.40); White Blood Count 15.75 K/ul (4.8-10.8)
[2024-06-06 08:17] LABS: BUN Creatinine Ratio 16.3 (10-20); Calcium 10.1 mg/dl (8.6-10.3); Creatinine Clr Calc Pharmacy 60.3 ml/min; Potassium 3.8 mmol/L (3.5-5.1)
--- NOTE | 2024-06-06 12:26 | Hospitalist Progress Note ---
Date of Service June 06, 2024 Assessment & Plan (1) S/P spinal surgery: (2) Two-level lumbosacral spondylosis with radiculopathy: (3) Hypertension: (4) Hyperlipidemia: (5) Sleep apnea: (6) Psoriasis: (7) Hx of migraines: (8) Fibromyalgia: Plan This is a 63yo F with a PMH of HTN, psoriasis, prediabetes, fibromyalgia, history of migraines, sleep apnea on CPAP who is POD #0 s/o excision of extradural mass L4-5, lumbar decompression bilateral medial facetectomies and foraminotomies L3-L4, L4-5 and L5-S1 and posterior spinal fusion L4-S1 by Dr. Champagne. S/p spinal surgery POD #2 s/o excision of extradural mass L4-5, lumbar decompression bilateral medial facetectomies and foraminotomies L3-L4, L4-5 and L5-S1 and posterior spinal fusion L4-S1 by Dr. Champagne. Per ortho for pain control, wound care, anticoagulation and activities Continue incentive spirometry, PT/OT when appropriate Post-op blood loss anemia Hgb stable at 10.5 today (from 10.8 yesterday) Pre-op hgb 12.0, EBL 250ml Asymptomatic, no indication for transfusion at this time Continue to monitor with daily CBC Hypertension Continue amlodipine, Toprol with hold parameters. Hold HCTZ for now in post-op setting - okay to resume on discharge Fibromyalgia Continue SNRI, reduced gabapentin dose HS in setting of PRN narcotics - ok to resume home dose gabapentin on discharge Hyperlipidemia Continue statin GERD (gastroesophageal reflux disease) Continue PPI Prediabetes A1c 7.6 in Apr 2024 Hold home metformin Glycemic consulted by primary for insulin management given high dose steroids BSG AC HS Psoriasis Continue betamethasone topical BID PRN Sleep apnea CPAP HS DVT Ppx: SCDs PCP: Jonathan Fritz Dispo: admitted to med/surg, anticipated discharge by primary service tomorrow I spent a total of 35 minutes coordinating, documenting, and providing care for this patient excluding time spent in the performance of separately billed services or time spent by another provider/QHP. Admission and Anticipated Discharge Date Admission Date: June 04, 2024 Supervising Physician Co-Signing Physician Notes Pt seen by CATALINA . Pt not seen by physician today. Subjective Patient seen and examined in 376-1. Pain is controlled today. Up walking with walker and feeling much better. Slept well overnight and pain is controlled. Urinating without issue, passing flatus. No lightheadedness, chest pain, shortness of breath, nausea, vomiting, abdominal pain. Anticipated dc is tomorrow. Review of Systems Review of Systems: At least ten systems reviewed and negative except as noted in the HPI. Physical Exam Physical Exam: Gen: WD/WN, NAD, resting in bed, A&Ox3, obese HEENT: Normocephalic, atraumatic, conjunctivae moist, sclerae anicteric, mucous membranes moist Lung: Clear to Auscultation bilaterally Heart: Regular rate, regular rhythm Abdomen: Soft, NT, ND +BS x 4 Extremities: + Spinal dressing c/d/i, ALEC drain visualized, no edema Skin: Warm, no rash Results & Data Results & Data Vital Signs (Past 12 Hours) Vital Signs Temp Pulse Resp BP Pulse Ox O2 Del Method 06/06/24 07:12 36.7 C 61 16 115/70 93 Room Air Laboratory Results Short CBC 06/06/24 Range/Units 06:41 WBC 15.75 H (4.8-10.8) K/ul Hgb 10.5 L (12.0-16.0) g/dl Hct 31.2 L (37.0-47.0) % Plt Count 347 (130-400) K/uL BMP 06/06/24 06:41 Sodium 139 Potassium 3.8 Chloride 101 Carbon Dioxide 30 BUN 17 Creatinine 1.04 Glucose 197 H Calcium 10.1 Diagnostic Findings Lumbar Spine X-Ray 06/04/24 09:35 FL lumbar spine 2-3V CLINICAL HISTORY: L4-S1 DECOMPRESSION AND FUSION WITH INTERBODIES COMPARISON STUDY: None FLUOROSCOPY TIME: 25.1 seconds FLUOROSCOPY IMAGES: 2 EXPOSURE DOSE: 25.24 mGy FINDINGS: Posterior interbody rods and screw fusion hardware with discectomy noted at L4-L5 and L5-S1. Grade 2 anterolisthesis anterolisthesis L4 on L5. Hardware appears intact. No unexpected opaque foreign bodies. Note that the images were submitted following completion of the surgery. IMPRESSION: Fluoroscopic assistance as above. ACT 112: Negative or not required by law. Electronically signed by: Everett Birch M.D. 06/04/2024 12:29 PM
[2024-06-06] MEDS: ACETAMINOPHEN 500 MG TAB PO PRN (20:58)
[2024-06-07 07:33] VITALS: BP 129/80; RESP 16; TEMP 97.5; O2SAT 95
[2024-06-07 08:55] VITALS: PULSE 65
--- NOTE | 2024-06-07 11:35 | Discharge Summary ---
Date of Service June 07, 2024 Admission HPI Per Admitting Provider This is a 63-year-old female who presents with [employer] system back and leg pain after failing course of nonoperative care she is here for surgical invention. Principal Diagnosis Lumbar spondylosis with radiculopathy Discharge Data Allergies Allergy/AdvReac Type Severity Reaction Status Date / Time lisinopril Allergy lip Verified 06/04/24 08:50 swelling Consultations 06/04/24 12:13 Consult Hospitalist Routine Procedures Performed Operation Date: 06/04/24 09:35 Actual Procedures p L4-L5,L5-S1 Decompression and Fusion, Spinal Cord Monitoring(Not Applicable) - Papo Champagne DO Ordered Studies 06/04/24 09:35 FL lumbar spine 2-3V Routine Hospital Course (1) Two-level lumbosacral spondylosis with radiculopathy: Patient underwent lumbar decompression fusion tolerated so stayed the orthopedic floor postoperatively. Postop patient progressed appropriately. Marked improvement in leg pain. X strength testing ALEC drain decreasing. Simply discharged home. Discharge orders and instructions from the chart for further review. Total Time Total Time Spent Total Time Spent (In Minutes): 20 minutes Discharge Plan Discharge Items Patient Disposition: Home - Self-Care Reason For Visit: Foraminal Stenosis of Lumbar Region, Lumbar Facet Discharge Diagnosis: Lumbar spondylosis with radiculopathy Activity: As commented below Non-emergency contact: Primary Care Provider Call non-emergency contact if: you have any medication questions Follow-up/Referrals: Ivan Palma DO [Primary Care Provider] - Diet: Regular Addtl Attending Provider Instructions: ACTIVITY RECOMMENDATIONS: SELF CARE INSTRUCTIONS AFTER THORACIC/LUMBAR FUSIONS 1. You may walk to your tolerance. It is good exercise for your legs and back. Expect some back and intermittent leg aches and pains. 2. You may perform "counter-top" level activities (make a sandwich, edward with a project, etc.). 3. No bending or lifting of more than 10 pounds or back twisting of any nature (roll like a log when turning in bed). 4. You may ride in a car for 20-30 minutes at a time. No driving until after your first visit with your doctor. 5. Frequent changes of position and restricting sitting to 30 minutes at a time will help limit the amount of back spasms and stiffness you may experience. 6. You may discontinue the use of ambulatory aids (cane, crutches, etc.) once your strength and confidence allow. 7. You may machines technician the shower and let water strike your incision when you arrive home at least once daily. Do not take a tub bath, sit in a hot tub or go into a swimming pool until after your first recheck in the office. 8. You may resume previous diet. SPECIAL CARE INSTRUCTIONS: VERY IMPORTANT TO READ AND REVIEW A. Your surgical incision has been closed with a cosmetic suture under the skin that will dissolve in about 6 weeks. In 14 days, you can use a pair of clean scissors and cut the suture that is left outside of the skin at the ends of your incision. 1. The small skin tapes can be removed 7 days after surgery if they have not fallen off by that point. 2. You may keep the wound open to air as much as possible to promote healing after post-op day number 5 unless told otherwise by your doctor. 3. If you think the wound looks like it is becoming infected (redness or worsening drainage) and/or you are experiencing fever, chill or worsening back pain and muscle spasms, contact the office so that we may evaluate you as soon as possible. B. Complications are uncommon, but please contact us if you have any signs or symptoms of: 1. wound infection (fever higher than 102.5 degrees F, redness, separation of wound, drainage, or increasing pain from the incision) 2. blood clots in legs (pain, swelling, redness and warmth in legs) 3. urinary tract infection (fever higher than 102.5 degrees F, burning upon urination or increased frequency of urination) 4. nerve problems (inability to walk on your toes or heels, numbness, loss of bowel or bladder control) 5. any other symptoms that concern you C. Please call the office at if you have any concerns or questions about your operation or recovery. D. No smoking! Smoking drastically decreases the chance of a solid fusion. E. Do not take any anti-inflammatory medications (Indocin, Advil, Motrin, Aspirin, Naprosyn, etc.) as these may inhibit the chance of a solid fusion. Tylenol is okay to take for pain. MANAGING PAIN AFTER SPINAL SURGERY 1. Narcotic medication is intended for short-term use and will be provided for surgical pain. Surgical pain usually lasts for a period of 4-6 weeks. Narcotic medication includes Percocet, Vicodin, Darvocet, Tylenol #3 or Lortab. 2. Longer-term pain is more appropriately treated with non-narcotic medication such as Tylenol ES. 3. Muscle spasm is not appropriately treated with narcotics. Muscle relaxers such as Soma, Flexeril or Skelaxin can be used along with Tylenol ES. 4. Remember that we all live with some "aches and pains". This is not unusual or uncommon after an injury or as we get older. a. Back pain is expected and may include muscle spasms for 4 to 6 weeks after surgery. The pain should gradually improve. If the pain worsens for no apparent reason, please contact the office. b. Intermittent leg pain may also be experienced and should not be concerned about unless it worsens for no apparent reason. If so, please contact the office. 5. We will provide appropriate medication within the normal guidelines of their prescribed use. We will also be very cautious and aware of potential abuse and extended duration of patients' medication needs. a. Pain medications are for your comfort and to assist with sleep and rest so that the tissue can heal. They are not provided in order to return to normal activity and should not be used through the day. To do so or worsening pain at night can result from ongoing tissue damage and development of tolerance to the prescribed medicine. 6. Please allow 2-3 days to process refills. Prescriptions will not be mailed but must be picked up at the office. FOLLOW UP VISIT: Keep your scheduled follow-up appointment. Any questions, please call the office at . Pending Studies at Discharge: No Stand-Alone Forms: [facility] [email or web address], Smoking Cessation Medications and DC Order Prescriptions: New oxycodone 5 mg tablet 5 mg PO Q6H PRN (Reason: pain) Qty: 30 0RF Continued metformin 500 mg Tablet 1,000 mg PO QAM atorvastatin 20 mg Tablet 20 mg PO HS metoprolol succinate 50 mg Tablet Extended Release 24 Hr 50 mg PO QAM hydrocodone-acetaminophen 5-325 mg Tablet 1 tab PO Q4H PRN (Reason: Pain) Patient Comments: usually only once per day metoprolol succinate 100 mg Tablet Extended Release 24 Hr 100 mg PO QAM amlodipine 10 mg Tablet 5 mg PO HS gabapentin 300 mg Capsule 1,200 mg PO HS duloxetine 60 mg Capsule,Delayed Release(Dr/Ec) 60 mg PO QAM hydrochlorothiazide 12.5 mg Tablet 12.5 mg PO QAM omeprazole 20 mg Tablet,Delayed Release (Dr/Ec) 20 mg PO QAM melatonin 5 mg Tablet 15 - 20 mg PO HS PRN (Reason: Sleep) cholecalciferol (vitamin D3) [Vitamin D3] 125 mcg (5,000 unit) Tablet 125 mcg PO QAM aspirin 81 mg Capsule 81 mg PO QAM betamethasone dipropionate 0.05 % Cream 1 applic TOPICAL BID PRN (Reason: psoriasis) diclofenac sodium [Voltaren Arthritis Pain] 1 % Gel 2 g TOPICAL QID PRN (Reason: Pain) Rx Instructions: apply to single elbow, wrist or hand; for hand includes palm/fingers/back of hand Discharge Orders: Discharge Order (Routine); Ordered 06/07/24 Ordered By: Papo Champagne Admission Data Admit Date/Time: 06/04/24 12:13 Attending Provider: Papo Champagne Admit Provider: Papo Champagne Primary Care Provider: Ivan Palma Other Providers: Francois Medellin; Brea Mckinney
--- NOTE | 2024-06-10 05:56 | Coding Query ---
ANEMIA To promote full compliance with coding requirements relating to patient care, physician participation is requested in all cases of pest control applicator uncertainty. Please assist us with the question(s) below: Coding Question(s): The record reflects the following clinical findings: Post-op blood loss anemia Hgb stable at 10.5 today (from 10.8 yesterday) Pre-op hgb 12.0, EBL 250ml Asymptomatic, no indication for transfusion at this time Continue to monitor with daily CBC Can you please clarify the chronicity of the blood loss anemia? ACUTE post-operative blood loss anemia (x ) CHRONIC post-operative blood loss anemia ( ) Thank you Breanna TAYLOR
== END 2024-06-07 13:50 | disposition home or self-care (01) | DRG 427 ==
LOC: ASU 07:51 → 3N 12:13